=== PATIENT | female | born 1985 | race Two or more races ===

== ENCOUNTER 2024-06-09 22:12 | Emergency (ER) | payer OTHER ==
[2024-06-09 22:16] VITALS: TEMP 97.6; BMI 21.9
[2024-06-09] MEDS ORDERED: MORPHINE SULFATE 2 MG/ML SYRINGE ONE (22:31)
[2024-06-09] MEDS: morphine SULFATE 4 MG/ML VIAL IVPUSH ONE (22:45)
[2024-06-09] MEDS ORDERED: PROPOFOL 0 ML ONE (23:31)
[2024-06-09] MEDS: PROPOFOL 200 MG/20 ML VIAL IVPUSH ONE ×2 (23:50→23:55)
[2024-06-09] MEDS: SODIUM CHLORIDE 0.9% 500 ML INFUS.BAG IV ONE (23:56)
[2024-06-10 00:15] VITALS: BP 109/68; PULSE 70; RESP 16
== END 2024-06-10 00:42 | disposition home or self-care (01) ==
LOC: JER 22:12
PROC: 0SSCXZZ Reposition Right Knee Joint, External Approach (ICD-10-PCS; principal; 2024-06-09)
PROC: 3E033NZ Introduction of Analgesics, Hypnotics, Sedatives into Peripheral Vein, Percutaneous Approach (ICD-10-PCS; 2024-06-09)
DX: S83.004A Unspecified dislocation of right patella, initial encounter (principal); W01.0XXA Fall on same level from slipping, tripping and stumbling without subsequent striking against object, initial encounter; Y93.41 Activity, dancing
CPT/HCPCS: 73560-TC-RT-FY; 99284-25